=== PATIENT | female | born 1960 | race Caucasian/White ===

== ENCOUNTER 2017-03-25 09:50 | Emergency (ER) | payer BC ==
[2017-03-25] MEDS ORDERED: Lidocaine 2% PF * 5 ML VIAL INJ ONE (10:24)
[2017-03-25 10:40] VITALS: BP 116/79
[2017-03-25] MEDS ORDERED: Tetan/Diph/Pertus SYR(Tdap)* 0.5 ML SYR(BOOSTRIX) use SYR IM ONE (10:43)
--- NOTE | 2017-03-25 10:46 | UC ---
Laceration HPI - HPI Summary HPI Summary: 56 YEAR OLD PRESENTS WITH LEFT WRIST LACERATION - History Of Current Complaint Chief Complaint: UCLaceration Stated Complaint: WRIST LAC Time Seen by Provider: 03/25/17 10:19 Laceration Location: Wrist - LEFT Mechanism Of Injury: Sharp Trauma Onset/Duration: Sudden Onset Severity: Mild Pain Scale Used: 0-10 Numeric - 5 Aggravating Factors: Movement - Allergies/Home Medications Allergies/Adverse Reactions: Allergies Allergy/AdvReac Type Severity Reaction Status Date / Time Prochlorperazine Allergy Severe See Comment Verified 03/25/17 10:11 [From Compazine] PMH/Surg Hx/FS Hx/Imm Hx Previously Healthy: Yes - Surgical History Surgical History: Yes Surgery Procedure, Year, and Place: double bypass. . TONSILECTOMY. CARDIAC CATH - NO STENTS - Family History Known Family History: Positive: Other - UNKNOWN - Social History Alcohol Use: Rare Substance Use Type: None, Prescribed Smoking Status (MU): Never Smoked Tobacco Review of Systems Constitutional: Negative Skin: Other - LEFT WRIST LACERATION Eyes: Negative ENT: Negative Respiratory: Negative Cardiovascular: Negative Gastrointestinal: Negative Genitourinary: Negative Motor: Negative Neurovascular: Negative Musculoskeletal: Negative Neurological: Negative Psychological: Negative All Other Systems Reviewed And Are Negative: Yes Physical Exam Triage Information Reviewed: Yes Appearance: Well-Appearing Vital Signs: Initial Vital Signs Temp 37.2 C 03/25/17 10:07 Pulse 75 03/25/17 10:07 Resp 20 03/25/17 10:07 BP 116/79 03/25/17 10:07 Pulse Ox 99 03/25/17 10:07 Vital Signs Reviewed: Yes Eye Exam: Normal Eyes: Positive: Conjunctiva Clear ENT Exam: Normal Dental Exam: Normal Neck exam: Normal Neck: Positive: 1 Respiratory Exam: Normal Cardiovascular Exam: Normal Abdominal Exam: Normal Musculoskeletal Exam: Normal Neurological Exam: Normal Psychological Exam: Normal Skin: Positive: Other - LEFT WRIST LACERATION Laceration Repair - Laceration Repair 1 Description: Linear Laceration Size After Repair: Length (cm) - 2 Modified For Repair: No Anesthesia Used: 2.0% Lido Irrigation With Pressure Irrigation Device: Yes Closure Material: Sutures Closure Method: Single Layer Suture Of: Skin Suture Type: Nylon - # 2 , 5.0 , NYLON Laceration Course/Dx - Differential Dx - Laceration/Wound Differental Diagnoses: Laceration Provider Diagnoses: LACERATION Discharge - Discharge Plan Condition: Stable Disposition: HOME Prescriptions: Sulfamethox/Trimethoprim DS* [Bactrim DS 800/160 TAB*] 1 tab PO BID #14 tab Patient Education Materials: Laceration (ED) Referrals: Velma Jones MD [Primary Care Provider] -
== END 2017-03-25 11:06 | disposition home or self-care (01) ==
LOC: UCEAST 09:50
DX: S61.512A Laceration without foreign body of left wrist, initial encounter (principal); X58.XXXA Exposure to other specified factors, initial encounter
CPT/HCPCS: 12001; 90471; 90715; 99212; G0463

== ENCOUNTER 2017-04-12 11:08 | Emergency (ER) | payer BC ==
[2017-04-12 11:14] VITALS: BP 116/64
--- NOTE | 2017-04-12 11:25 | UC ---
HPI Wound/Suture Re-check - HPI Summary HPI Summary: Pt presents for suture removal - 2 simple interrupted sutures to left wrist. No erythema, discharge no tenderness No fevers, chills - History Of Current Complaint Chief Complaint: UCLaceration Stated Complaint: STITCH REMOVAL - WRIST Time Seen by Provider: 04/12/17 11:19 Hx Obtained From: Patient, Medical Records Onset/Duration: Lasting Days Severity: Mild Pain Intensity: 1 - Allergies/Home Medications Allergies/Adverse Reactions: Allergies Allergy/AdvReac Type Severity Reaction Status Date / Time Prochlorperazine Allergy Severe See Comment Verified 03/25/17 10:11 [From Compazine] PMH/Surg Hx/FS Hx/Imm Hx Cardiovascular History: Cardiac Disease, Hypertension - Surgical History Surgical History: Yes Surgery Procedure, Year, and Place: double bypass. . TONSILECTOMY. CARDIAC CATH - NO STENTS - Family History Known Family History: Positive: Other - UNKNOWN - Social History Lives: With Family Alcohol Use: Occasionally Substance Use Type: None Smoking Status (MU): Never Smoked Tobacco Review of Systems Constitutional: Negative Skin: Other - sutures left volar wrist Eyes: Negative ENT: Negative Respiratory: Negative Cardiovascular: Negative Gastrointestinal: Negative Genitourinary: Negative Motor: Negative Neurovascular: Negative Musculoskeletal: Negative Neurological: Negative Psychological: Negative All Other Systems Reviewed And Are Negative: Yes Physical Exam Triage Information Reviewed: Yes Appearance: Well-Appearing, No Pain Distress Vital Signs: Initial Vital Signs Temp 97.6 F 04/12/17 11:09 Pulse 81 04/12/17 11:09 Resp 18 04/12/17 11:09 BP 116/64 04/12/17 11:09 Pulse Ox 99 04/12/17 11:09 Vital Signs Reviewed: Yes Eye Exam: Normal Eyes: Negative: Discharge ENT: Positive: Hearing grossly normal Neck exam: Normal Neck: Positive: Supple, Nontender Respiratory: Positive: Normal breath sounds, No respiratory distress, No accessory muscle use Cardiovascular: Positive: Other: - 2+ radial CBT < 2 sec Musculoskeletal Exam: Normal Neurological Exam: Normal Psychological Exam: Normal Skin: Positive: Other - 2 sutures wound c/d/i no drainage, fluctuance, erythema Course/Dx - Course Course Of Treatment: sutures removed wound well approximated. wound c/d/i. reviewed with pt wound care. s/s infection. pt comfortable and in agreement with plan - Differential Dx - Laceration/Wound Provider Diagnoses: suture removal Discharge - Discharge Plan Condition: Stable Disposition: HOME Patient Education Materials: Stitches Removal (ED) Referrals: Velma Jones MD [Primary Care Provider] - Additional Instructions: Keep clean and dry It can atke up to 9 months for scar to completely heal - keep out of the sun contact your doctor or return with questions or concerns
== END 2017-04-12 11:30 | disposition home or self-care (01) ==
LOC: UCEAST 11:08
DX: Z48.02 Encounter for removal of sutures (principal)
CPT/HCPCS: 99211; G0463

== ENCOUNTER 2019-09-17 04:53 | Observation (INO) | payer BC, OTHER ==
[2019-09-17] MEDS ORDERED: Morphine 10 MG/ML VIAL (1 ml) ONE (04:58)
[2019-09-17] MEDS ORDERED: NS 0.9% 1000 ML** 1,000 ML IV ONE (04:59)
[2019-09-17] MEDS ORDERED: Morphine 10 MG/ML VIAL (1 ml) IV ONE (04:59)
--- NOTE | 2019-09-17 05:00 | ED ---
Lower Extremity - HPI Summary HPI Summary: Patient is a 58 y/o F presenting to [facility] via EMS with complaints of left ankle pain secondary to fall. She was outside when she slipped on the ice and fell. EMS noted obvious deformity and administered 10 mg morphine with minimal relief in pain. She notes that she has Hx of open heart surgery. Home medications and allergies are reviewed. - History of Current Complaint Stated Complaint: BROKEN ANKLE PER EMS Hx Obtained From: Patient, EMS Mechanism Of Injury: Fall From A Standing Position Onset of Pain: Prior to Arrival Onset/Duration: Still Present Severity Currently: Severe Pain Scale Used: 0-10 Numeric Timing: Constant Location: Is Discrete @ - left ankle - Allergies/Home Medications Allergies/Adverse Reactions: Allergies Allergy/AdvReac Type Severity Reaction Status Date / Time prochlorperazine Allergy Anaphylatic Verified 09/17/19 05:11 [From Compazine] Shock Home Medications: Home Medications Coenzyme Q10 (NF) [Th Co Q-10] 1 cap PO EVERY OTHER DAY 09/17/19 [History Confirmed 09/17/19] Multivitamin [Super Multivitamin] 1 each PO DAILY 09/17/19 [History Confirmed ] PMH/Surg Hx/FS Hx/Imm Hx Endocrine/Hematology History: Denies: Hx Diabetes Cardiovascular History: Denies: Hx Congestive Heart Failure, Hx Hypertension, Hx Pacemaker/ICD History: Denies: Hx Renal Disease Musculoskeletal History: Denies: Hx Rheumatoid Arthritis, Hx Osteoporosis Sensory History: Denies: Hx Hearing Aid Psychiatric History: Denies: Hx Panic Disorder - Cancer History Hx Chemotherapy: No Hx Radiation Therapy: No - Surgical History Surgery Procedure, Year, and Place: double bypass. . TONSILECTOMY. CARDIAC CATH - NO STENTS Infectious Disease History: Denies: Hx Clostridium Difficile, Hx Hepatitis, Hx Human Immunodeficiency Virus (HIV), Hx of Known/Suspected MRSA, Hx Shingles, Hx Tuberculosis, Hx Known/ Suspected VRE, Hx Known/Suspected VRSA, History Other Infectious Disease - Family History Known Family History: Positive: Other - FMHx of breast cancer - Social History Alcohol Use: Occasionally Substance Use Type: Reports: None Smoking Status (MU): Never Smoked Tobacco Review of Systems Negative: Fever Musculoskeletal: Other - positive - fall, left ankle pain All Other Systems Reviewed And Are Negative: Yes Physical Exam - Summary Physical Exam Summary: Appearance: Well-appearing, Well-nourished, noted to be in obvious pain and is hyperventilating Skin: Warm, dry, no obvious rash Eyes: sclera anicteric, no conjunctival pallor ENT: mucous membranes moist Neck: deferred Respiratory: No signs of respiratory distress Cardiovascular: Appears well perfused, pulses are nml Abdomen: deferred Musculoskeletal: There is an obvious fracture and dislocation at the area of her left ankle. The foot appears well perfused and has a good pulse. Sensation is intact to light touch. There is no tenting about the LLE. There are no open areas of skin. Neurological: Awake and alert, mentation is normal, speech is fluent and appropriate Psychiatric: affect is normal, does not appear anxious or depressed Triage Information Reviewed: Yes Vital Signs Reviewed: Yes Procedures - Sedation Patient Received Moderate/Deep Sedation with Procedure: Yes Are You The Provider Who Administered The Sedation: Yes Name of Provider Whom Sedated Patient: Jamee Marmolejo - Procedural Sedation/Analgesia Sedation Course: RT Present, Emergency Airway Equipment Available, Informed Consent Obtained, Time Out Completed, End-tidal Capnography Utilized Adverse Reactions Experienced by Patient: None Mallampati Classification: Class II ASA Classification: Class II: Mild Systemic Disease Pre-Procedural Heart: S1 and S2 Pre-Procedural Lungs: Clear Auscultation Comment/Plan of Care: Pt requires moderate sedation to reduce comminuted displaced ankle fracture. Provider Procedure Attestation: With My Signature Below, I Attest to have Personally Reviewed and Agree with the Pre-Sedation History and Pre-Service Assessment Update Cleared for Moderate Sedation: Yes Pre-Procedural Diagnosis: Trimalleolar fracture/dislocation of the left ankle Post-Procedural Diagnosis: Trimalleolar fracture/dislocation of the left ankle Procedure: Reduction of fracture/dislocation Estimated Blood Loss: None Specimen(s): None Findings: None Implants/Tubes/Drains Placed: None - Splinting Left Lower Extremity Location: left ankle/leg Hand-Made Type: orthoglass Splint: posterior walking Pre-Proc Neuro Vasc Exam: normal Post-Proc Neuro Vasc Exam: normal Splint Applied by Provider: Jamee Marmolejo - Joint Reduction Left Ankle Joint Reduction Site: ankle (L) Conscious Sedation: Yes Reduction Attempts: 1 Pre-Procedure NV Exam: Yes Post Joint Reduction Film: joint reduced Diagnostics - Laboratory Result Diagrams: 09/17/19 07:40 09/17/19 07:40 Lab Statement: Any lab studies that have been ordered have been reviewed, and results considered in the medical decision making process. - Radiology LEFT ANKLE X-RAY Radiology Interpretation Completed By: ED Physician Summary of Radiographic Findings: Left X-ray showed posterior, dislocated trimalleolar fracture of the left ankle, pending official report. POST REDUCTION LEFT ANKLE X-RAY Radiology Interpretation Completed By: ED Physician Summary of Radiographic Findings: Post-reduction left ankle x-ray showed good anatomical alignment, pending official report. Lower Extremity Course/Dx - Course Course Of Treatment: Patient is a 58 y/o F presenting to [facility] via EMS with complaints of left ankle pain secondary to fall. She was outside when she slipped on the ice and fell. EMS noted obvious deformity and administered 10 mg morphine with minimal relief in pain. On physical exam, patient is noted to be in obvious pain and is hyperventilating. There is an obvious fracture and dislocation at the area of her left ankle. The foot appears well perfused and has a good pulse. Sensation is intact to light touch. There is no tenting about the LLE. There are no open areas of skin. Left X-ray showed posterior, dislocated trimalleolar fracture of the left ankle. During ED course, patient received fluids, morphine 10 mg IV, and Percocet 5/325, 2 tabs. Moderate sedation with 200 mg IV Propofol was done, reduction of left ankle performed with SLAVA Ramirez. One attempt of reduction done. Post-reduction left ankle x -ray showed good anatomical alignment. No complications during reduction. Orthoglass posterior walking splint was applied to LLE. Patient was discharged to home and will follow up with ortho. She was given crutches and prescription for Percocet. - Diagnoses Provider Diagnoses: Trimalleolar fracture of left ankle Discharge ED - Sign-Out/Discharge Documenting (check all that apply): Sign-Out Patient Signing out patient TO: mEma Salcido - Discharge Plan Condition: Stable Disposition: ADMITTED TO [facility] - Billing Disposition and Condition Condition: STABLE Disposition: Admitted to [facility] - Attestation Statements Document Initiated by Scribe: Yes Documenting Scribe: ALMA BRAN Provider For Whom Scribe is Documenting (Include Credential): JAMEE MARMOLEJO MD Scribe Attestation: ALMA Shanks, scribed for JAMEE MARMOLEJO MD on 09/18/19 at 0439. Scribe Documentation Reviewed: Yes Provider Attestation: The documentation as recorded by the scribe, ALMA BRAN accurately reflects the service I personally performed and the decisions made by me, JAMEE MARMOLEJO MD Status of Scribe Document: Viewed
[2019-09-17] MEDS ORDERED: Propofol* 10 MG/ML 20 ML BTL IV PUSH ONE (05:18)
[2019-09-17] MEDS ORDERED: oxyCODONE/Acetamin 5/325 MG* TAB PO ONE (05:53)
[2019-09-17] MEDS ORDERED: Ketorolac INJ* 30 MG/ML 1 ML VIAL IV ONE (07:07)
--- NOTE | 2019-09-17 07:26 | ED ---
Progress - Progress Note Progress Note: Patient seen by Dr. Marmolejo on shift 09/16/19 19:00. Patient to be discharged. Patient having significant pain at discharge. She is unable to ambulate or bear weight. Course/Dx - Diagnoses Provider Diagnoses: Trimalleolar fracture of left ankle - Provider Notifications Discussed Care Of Patient With: Cyril Butcher Time Discussed With Above Provider: 07:26 Instructed by Provider To: Other - Dr. Butcher orthopedics is aware and will consult. 0731 Dr. Denise hospitalist agrees to admit. Discharge ED - Sign-Out/Discharge Documenting (check all that apply): Patient Departure - Discharge Plan Condition: Stable Disposition: ADMITTED TO [facility] Prescriptions: oxyCODONE/Acetamin 5/325 MG* [Percocet 5/325 TAB*] 2 tab PO Q4H PRN #20 tab MDD 8 PRN Reason: Pain - Severe Patient Education Materials: Ankle Fracture (ED), Moderate Sedation (ED) Referrals: Shweta Carter MD [Medical Doctor] - Additional Instructions: This type of break will need surgery to heal properly. Call the orthopedic surgery office later this morning and tell them you were in the ER after suffering a trimalleolar fracture. They will have your films available via the computers and will arrange an appointment for you to be seen probably later today or Tuesday, and the surgery will likely be scheduled soon after . In the meantime keep the splint on and do not bear weight, use the crutches to get around. Keep the leg elevated as much as possible and ice it frequently. This is most easily done by placing a bag of frozen vegetables on the ankle. - Billing Disposition and Condition Condition: STABLE Disposition: Admitted to [facility] - Attestation Statements Document Initiated by Mazinibe: Yes Documenting Scribe: Shirley Payne Provider For Whom Nubia is Documenting (Include Credential): Emma Salcido MD Scribe Attestation: I, Shirley Payne, scribed for Emma Salcido MD on 09/17/19 at 0736. Scribe Documentation Reviewed: Yes Provider Attestation: The documentation as recorded by the Shirley cantrell accurately reflects the service I personally performed and the decisions made by me, Emma Salcido MD Status of Scribe Document: Viewed
[2019-09-17 07:47] LABS: ABS Eosinophils 0.1 10^3/ul (0-0.6); ABS Lymphocytes 1.2 10^3/ul (1.0-4.8); ABS Monocytes 0.3 10^3/ul (0-0.8); ABS Neutrophils 5.5 10^3/ul (1.5-7.7); Eosinophil % 0.8 %; Hematocrit 40 % (35-47); Lymphocyte % 17.5 %; Mean Corpuscular HGB Conc 35 g/dL (31-36); Mean Corpuscular Hemoglobin 31 pg (27-31); Mean Corpuscular Volume 88 fL (80-97); Mean Platelet Volume 7.4 fL (7.4-10.4); Platelet Count 226 10^3/uL (150-450); Red Cell Distribution Width 13 % (10-15)
[2019-09-17 08:02] LABS: Albumin 4.2 g/dL (3.2-5.2); Albumin/Globulin Ratio 1.7 (1-3); BUN/Creatinine Ratio 18.9 (8-20); Calcium 9.8 mg/dL (8.6-10.3); EGFR African American 77.3 (>60); EGFR Non-African American 63.9 (>60); Globulin 2.5 g/dL (2-4); Total Bilirubin 0.4 mg/dL (0.2-1.0); Total Protein 6.7 g/dL (6.4-8.9)
[2019-09-17] MEDS ORDERED: HYDROmorphone INJ* 0.5 MG/0.5 ML SYRINGE IV ONE (08:10)
[2019-09-17] MEDS ORDERED: HYDROmorphone INJ* 0.5 MG/0.5 ML SYRINGE IV SLOW PU ONE (08:10)
[2019-09-17] MEDS ORDERED: Acetaminophen TAB* 325 MG PO PRN (08:15)
[2019-09-17 08:20] LABS: Potassium 5.1 mmol/L (3.5-5.0)
[2019-09-17] MEDS ORDERED: Atorvastatin* 80 MG TAB PO SCH ×2 (09:00→21:00)
[2019-09-17] MEDS ORDERED: Lisinopril TAB* 5 MG PO SCH (09:00)
--- NOTE | 2019-09-17 10:42 | HP ---
CC: Dr. Jones; Dr. Madden; Dr. Butcher* HISTORY AND PHYSICAL: DATE OF ADMISSION: 09/17/19 PRIMARY CARE PROVIDER: Dr. Jones. CHIEF COMPLAINT: Status post fall and left ankle pain. HISTORY OF PRESENT ILLNESS: Ms. Maynard is a 58-year-old female with a history of coronary artery disease who slid on ice on her way to work fracturing her left ankle. The left ankle was reset and splinted in the emergency department. The patient was ready to go home, but she had severe intractable pain and the ED physician recommended for the patient to be admitted for that. The patient stated that she did not have a syncopal episode and she had been feeling her usual state of health before that. She simply slid on ice. She is going to be placed on overnight observation. PAST MEDICAL HISTORY: 1. History of coronary artery disease, status post coronary artery bypass grafting in 2014. 2. History of plantar fascitis. 3. Dyslipidemia. 4. History of rare migraines. 5. Gastroesophageal reflux disease. 6. Endometriosis. 7. Carpal tunnel release. 8. History of . 9. Tonsillectomy. MEDICATIONS: At home include: 1. Coenzyme Q10 one capsule daily. 2. Multivitamin 1 tablet daily. 3. Metoprolol tartrate 25 mg b.i.d. 4. Crestor 40 mg daily. 5. Ranitidine 150 mg b.i.d. p.r.n. 6. Aspirin 81 mg daily. 7. Amlodipine 5 mg daily. 8. Lisinopril 2.5 mg daily. 9. She was prescribed Percocet in the ED. 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 FAMILY HISTORY: Positive for sister with diagnosis of breast cancer at the age of 48. Father with lung cancer at the age of 62 and mother who of brain aneurysm at the age of 54. SOCIAL HISTORY: The patient denies tobacco, alcohol or drug use. She is working for [employer]. She lives with her , who is her surrogate. REVIEW OF SYSTEMS: Please see history of present illness. All the remaining 12 systems were reviewed with the patient and were, otherwise, negative. Please note that she exercises frequently and she has no exercise intolerance and denies any chest pain. In fact, she had a workup performed with Dr. Madden's office just recently and she felt that it all was negative. PHYSICAL EXAMINATION GENERAL: The patient is a very pleasant 58-year-old female who is in no acute distress. The patient is alert and oriented x3. VITAL SIGNS: Blood pressure of 136/69, heart rate of 76 and regular, respiratory rate 15, oxygen saturation 95% on room air, temperature of 99.8. HEENT: Head: Atraumatic, normocephalic. Eyes: Pupils are equal and reactive to light and accommodation. Oropharynx is clear. Mucosa moist. NECK: Supple. No JVD. No bruits bilaterally. RESPIRATORY: Clear to auscultation bilaterally. CARDIOVASCULAR: Regular rate and rhythm. No murmur. ABDOMEN: Soft, nontender. Bowel sounds are present in all 4 quadrants. EXTREMITIES: The left ankle is in a splint. It is difficult for me to evaluate the ankle edema on that side. On the right side, the patient has no edema. Pedal pulses on the right side are palpable. There is no clubbing and no cyanosis bilaterally. NEURO EVALUATION: Speech is clear. Cranial nerves II through XII are grossly intact. Motor strength is 5/5 bilaterally. DIAGNOSTIC STUDIES/LAB DATA: Laboratory Data: White blood cell count of 7.3, hemoglobin of 14.0, hematocrit of 40, and platelets of 226. Sodium was 139, potassium of 5.1, chloride 106, carbon dioxide 30, BUN 17, creatinine 0.9. Liver function tests unremarkable. Lower extremity CT obtained on 09/17/19, impression: "Comminuted trimalleolar fracture most consistent with Maravilla III." ASSESSMENT AND PLAN: 1. The patient is a 58-year-old female with a history of heart disease who slid on ice and suffered from trimalleolar ankle fracture on the left. The patient is going to be placed on observation for intractable pain. She already has her ankle splinted and Dr. Butcher also saw the patient in consultation. 2. The patient has mild hyperkalemia and due to that her lisinopril is going to be held and we will check her basic metabolic panel in the morning. 3. For history of cardiac disease, the patient is started on aspirin as well as beta sean is going to be continued. 4. For hypertension, her amlodipine is going to be continued. 5. For DVT prophylaxis, the patient is going to be placed on heparin subcutaneously. 6. The patient's code status is full and her surrogate is her . TIME SPENT: Approximately 55 minutes were spent on the admission of this patient, more than half that time was spent [id number] with the patient during the interview and physical exam. [id number]/[facility] #: [id number] MTDD
[2019-09-17] MEDS: Aspirin EC TAB* 81 MG TAB.EC PO SCH (10:46)
[2019-09-17] MEDS: Metoprolol Tartrate TAB* 25 MG PO SCH ×2 (10:46→21:47)
[2019-09-17] MEDS: Senna TAB 8.6 mg* TAB PO SCH ×2 (10:46→21:47)
[2019-09-17] MEDS: Docusate CAP* 100 MG PO SCH ×2 (10:47→21:47)
[2019-09-17] MEDS: amLODIPine TAB* 5 MG PO SCH (10:47)
[2019-09-17] MEDS: oxyCODONE/Acetamin 5/325 MG* TAB PO PRN ×3 (10:57→21:47)
[2019-09-17] MEDS: Heparin VIAL(*) 5000 UNITS/ML VIAL (FIVE THOUSAND) SUBCUT SCH ×2 (14:25→21:50)
[2019-09-17] MEDS: Ondansetron INJ* 2 MG/ML VIAL IV PRN (18:13)
[2019-09-17] MEDS: Morphine INJ* 2 MG/ML 1 ML SYRINGE (TWO MG - NEW SYRINGE VERSION) IV PRN (19:15)
--- NOTE | 2019-09-17 20:57 | CONS ---
CONSULTATION REPORT: DATE OF CONSULT: 09/17/19 ATTENDING ORTHOPEDIC PROVIDER: Dr. Cyril Butcher. PRIMARY CARE PROVIDER: Dr. Jones. LABEL REWINDER: Dr. Madden. CHIEF COMPLAINT: Left ankle trimalleolar fracture. HISTORY OF PRESENT ILLNESS: The patient is a 58-year-old female with past medical history of coronary artery disease, status post CABG in 2014, who suffered a mechanical fall on ice at work this morning with a resultant closed trimalleolar left ankle fracture. The patient works for [employer] and slipped in the parking lot. She denies any other injuries, loss of consciousness hitting her head at the time of the fall. Also denies associated symptoms of chest pain, shortness of breath, dizziness. Fracture was reduced and splinted in the emergency department today by emergency room provider. The patient was admitted for pain control. When seen at bedside today, she reports she has pain that is sharp, severe and nonradiating in the left ankle rated 6/10 at rest, with any movement it worsened to a 9/10. PAST MEDICAL HISTORY: Significant for coronary artery disease, status post CABG in 2014; plantar fascitis; dyslipidemia; migraines; GERD; endometriosis. PAST SURGICAL HISTORY: Significant for carpal tunnel release, , tonsillectomy, CABG. HOME MEDICATIONS: Include: 1. Coenzyme Q10 daily. 2. Multivitamin 1 tab daily. 3. Metoprolol tartrate 25 mg b.i.d. 4. Crestor 40 mg daily. 5. Ranitidine 150 mg b.i.d. p.r.n. 6. Aspirin 81 mg daily. 7. Amlodipine 5 mg daily. 8. Lisinopril 2.5 mg daily. ALLERGIES: COMPAZINE resulting in locked jaw. FAMILY HISTORY: No history of adverse reactions from anesthesia. SOCIAL HISTORY: The patient works for [employer] She lives in a one-therese home with 4 steps with her , who is her surrogate decision maker. Her 's name is Alek, phone number [phone]. The patient denies the use of cigarettes or drugs. She uses occasional alcohol. She is quite active at baseline working for [employer] She also goes to Spin class 3 times per week and lifts weights 2 times per week. REVIEW OF SYSTEMS: General: No fever, chills, or recent illness. HEENT: Negative for head trauma, headache, or change in vision. Cardiac: Negative for any chest pain. Does have history of CABG. She had a recent DOT physical with echo, EKG, and stress test. Respiratory: No shortness of breath. GI: No history of sleep apnea. GI: No abdominal pain, nausea, vomiting, or diarrhea. : No dysuria. Musculoskeletal: Positive for left ankle pain. No pain of left lower extremity. Otherwise, no pain in right lower extremity with bilateral upper extremities. Neuro: Denies any numbness, tingling of bilateral lower and upper extremities. PHYSICAL EXAM: Vital Signs: Temperature 98.5, pulse rate 77, respiratory rate 18, oxygen saturation is 93 on room air, blood pressure 111/51. General: Well appearing, in no acute distress. HEENT: Normocephalic, atraumatic. Extraocular movements intact. Respiratory: Normal rate and effort of breathing. Cardiovascular: Radial pulses are 2+ and regular bilaterally. Abdomen: Nondistended, nontender. Extremities: Bilateral upper extremities and right lower extremities skin envelope intact. Nontender to palpation. Able to flex and extend all joints without pain. Left lower extremity: There is a lower leg splint in place. The patient is nontender to palpation of the exposed toes, knee, femur, or hip. She is able to flex and extend MTPs, knee, and hip without pain while lower leg is supported. Capillary refill less than 2 seconds distally. Sensation intact to light touch distally. DIAGNOSTIC STUDIES: CT of the left ankle demonstrates comminuted trimalleolar fracture. ASSESSMENT: Comminuted trimalleolar fracture, left ankle. PLAN: ORIF will be required, patient is aware and in agreement. She will be nonweightbearing. She will keep the splint clean, dry, and intact. She should stay elevated on 4-plus pillows with ice to reduce swelling. She should be on chemical and mechanical DVT prophylaxis until the midnight before her surgery. It has yet to be determined when she will have surgery, potentially tomorrow if medically optimized and swelling is well controlled. The patient has seen Dr. Mcnally in the office before and requests that he perform her surgery though depending on her level of pain, she may desire to have it done tomorrow by our [employer] professional orthopedic surgeon. If surgery is not done tomorrow, she may be discharged and ORIF can be done as an outpatient, but should be done within 7- 10 days. In the meanwhile, she should stay nonweightbearing and continue strict elevation, chemical DVT prophylaxis should be appropriately held prior to surgery. She will need medical optimization prior to surgery. Case discussed with Dr Butcher who agrees with assessment and plan. SLAVA NAVARRETE [id number]/[facility] #: [id number] ELENA
[2019-09-18] MEDS: oxyCODONE/Acetamin 5/325 MG* TAB PO PRN (02:45)
[2019-09-18] MEDS: Morphine INJ* 2 MG/ML 1 ML SYRINGE (TWO MG - NEW SYRINGE VERSION) IV PRN (04:32)
[2019-09-18] MEDS: Ondansetron INJ* 2 MG/ML VIAL IV PRN ×2 (04:32→10:19)
[2019-09-18] MEDS ORDERED: Morphine INJ* 2 MG/ML 1 ML SYRINGE (TWO MG - NEW SYRINGE VERSION) IV ONE (05:19)
[2019-09-18] MEDS ORDERED: Morphine INJ* 4 MG/ML 1 ML SYRINGE (NEW SYRINGE VERSION) IV ONE (05:19)
[2019-09-18] MEDS ORDERED: oxyCODONE/Acetamin 5/325 MG* TAB PO PRN ×3 (05:20→09:08)
[2019-09-18] MEDS ORDERED: Morphine INJ* 4 MG/ML 1 ML SYRINGE (NEW SYRINGE VERSION) ONE (05:21)
[2019-09-18] MEDS: Heparin VIAL(*) 5000 UNITS/ML VIAL (FIVE THOUSAND) SUBCUT SCH ×2 (05:39→13:10)
[2019-09-18 05:44] LABS: BUN/Creatinine Ratio 19.1 (8-20); Calcium 9.2 mg/dL (8.6-10.3); EGFR African American 78.3 (>60); EGFR Non-African American 64.7 (>60); Potassium 4.2 mmol/L (3.5-5.0)
[2019-09-18] MEDS: Aspirin EC TAB* 81 MG TAB.EC PO SCH (09:19)
[2019-09-18] MEDS: Senna TAB 8.6 mg* TAB PO SCH (09:19)
[2019-09-18] MEDS: Metoprolol Tartrate TAB* 25 MG PO SCH (09:19)
[2019-09-18] MEDS: amLODIPine TAB* 5 MG PO SCH (09:20)
[2019-09-18] MEDS: Docusate CAP* 100 MG PO SCH (09:20)
[2019-09-18] MEDS ORDERED: traMADol TAB* 50 MG PO PRN (10:42)
[2019-09-18 11:42] VITALS: BP 135/59
[2019-09-18] MEDS ORDERED: traMADol TAB* 50 MG PO ONE (13:02)
--- NOTE | 2019-09-18 21:09 | DS ---
CC: Dr. Jones; Dr. Eleazar Mcnally* DISCHARGE SUMMARY: DATE OF ADMISSION: 09/17/19 DATE OF DISCHARGE: 09/18/19 PRIMARY CARE PROVIDER: Dr. Jones. DISPOSITION ON DISCHARGE: Home. CONDITION ON DISCHARGE: Improved. MEDICATIONS ON DISCHARGE: 1. Coenzyme Q10 1 tab every other day. 2. Multivitamin 1 tab daily. 3. Metoprolol 25 mg twice daily. 4. Rosuvastatin 40 mg daily. 5. Ranitidine 150 mg twice daily as needed. 6. Aspirin 81 mg daily. 7. Amlodipine 5 mg daily. 8. Tramadol 50 mg every 4 hours as needed for moderate to severe pain. 9. MiraLAX 17 g daily. Hold for diarrhea. 10. Zofran ODT 4 mg every 6 hours as needed for nausea. 11. Enoxaparin 40 mg subcutaneously daily. Hold the day prior to surgery. 12. Docusate 100 mg twice daily. Hold for diarrhea. 13. Acetaminophen 975 mg every 6 hours for mild to moderate pain. PRIMARY DIAGNOSIS: Left trimalleolar ankle fracture. HISTORY OF PRESENT ILLNESS AND HOSPITAL COURSE: This is a 58-year-old female, slipped on ice resulting in left trimalleolar ankle fracture, admitted to the hospital with uncontrolled pain from the emergency room, seen in conjunction with Orthopedic Surgery. She is scheduled to have surgery at least in 7 days, next Tuesday, with Dr. Eleazar Mcnally. There was a recommendation for anticoagulation prior to the surgery made by Stormy Holliday whom I discussed with this recommendation on the phone today. She did indicate this does not require therapy status post ankle fracture prior to surgery. Discussed with the patient she indicated if Lovenox were available, she would accept it and administer at home either herself or in conjunction with her sister. The prescription was given for the patient, although review of does not indicate high incidence of DVTs in ankle fractures, particularly prior to the surgery. I discussed the risks associated with anticoagulation. The patient during the course of her hospital stay had difficulty with opiates which caused nausea; however, she did have success in pain control with tramadol, which I gave her prescription for until surgery. Additionally, I recommended using Tylenol up to 975 mg every 6 hours for the treatment of her pain. We discussed elevating the leg and applying ice for additional relief. There were no complications during the course of her hospital stay. REASONS TO RETURN TO THE HOSPITAL: Including but not limited to recurrent or worsening symptoms including out of control pain, chest pain, shortness of breath, nausea, vomiting, lightheadedness, loss of consciousness, inability to obtain or tolerate medications were discussed with the patient. She acknowledged understanding. TIME SPENT: Greater than 60 minutes was spent on this discharge of this patient , greater than half was spent [id number] with the patient. [id number]/[facility] #: [id number] ELENA
== END 2019-09-18 15:13 | disposition home or self-care (01) ==
LOC: ED 04:53 → SSU 08:15
PROVIDERS: ADMIT Internal Medicine; ATTEND Internal Medicine
DX: S82.852A Displaced trimalleolar fracture of left lower leg, initial encounter for closed fracture (principal); W00.0XXA Fall on same level due to ice and snow, initial encounter; Y92.9 Unspecified place or not applicable; F17.210 Nicotine dependence, cigarettes, uncomplicated; Z79.82 Long term (current) use of aspirin; Z79.899 Other long term (current) drug therapy; I25.10 Atherosclerotic heart disease of native coronary artery without angina pectoris; Z95.5 Presence of coronary angioplasty implant and graft; E78.5 Hyperlipidemia, unspecified; K21.9 Gastro-esophageal reflux disease without esophagitis; N80.9 Endometriosis, unspecified
CPT/HCPCS: 27810; 36415; 80048; 80053; 85025; 96372; 96374; 96375; 99285; A9270-GY; G0378; J1170; J1644; J1885; J2270; J2405; J2704

== ENCOUNTER → 2019-09-25 | Day surgery (SDC) | payer OTHER ==
[~2019-09-25] MED LIST: Buffered Lidocaine 1% SYRIN* 1 ML/SYRINGE INTRADERM ONE; Bupivacaine 0.5% SDV PF* 30ML VIAL ONE; Dexamethasone IV* 4 MG/ML 1 ML (4 MG) ONE; HYDROmorphone INJ1* 1 MG/ML SYRINGE IV PRN; Lactated Ringers 1000 ML Bag* 1,000 ML IV SCH; Midazolam* 1 MG/ML 2 ML VIAL (2 MG) ONE; Midazolam* 1 MG/ML 5 ML VIAL (5 MG) ONE; Naloxone* 0.4 MG/ML 1 ML VIAL IV PRN; Ondansetron INJ* 2 MG/ML VIAL IV PRN; Ondansetron INJ* 2 MG/ML VIAL ONE; Propofol* 10 MG/ML 20 ML BTL ONE; ceFAZolin 2 GM in NS PREMIX(*) 2 GM/100 ML BAG IVPB ONE; fentaNYL* 50 MCG/ML 2 ML VIAL (100 MCG VIAL) IV PRN; fentaNYL* 50 MCG/ML 2 ML VIAL (100 MCG VIAL) ONE; oxyCODONE/Acetamin 5/325 MG* TAB PO PRN
--- NOTE | 2019-09-25 14:20 | OP ---
Operative Report - Blank - Operative Report Date of Operation: 09/25/19 Note: PATIENT: Huber Maynard DATE OF : 1960 DATE OF SURGERY: 09/25/2019 SURGEON: Eleazar Mcnally MD PAYING TELLER: SLAVA Downing , whos assistance was necessary for positioning, retraction, help with instrumentation, and closure. ANESTHESIOLOGIST: Dr. Mcgee PREOPERATIVE DIAGNOSIS: Left comminuted trimalleolar ankle fracture and intraarticular ankle loose bodies POSTOPERATIVE DIAGNOSIS: Left comminuted trimalleolar ankle fracture and intraarticular ankle loose bodies OPERATION: 1. Left trimalleolar ankle fracture open reduction and internal fixation 2. Left ankle arthrotomy and excision of loose bodies ANESTHESIA: General + block IMPLANTS: Arthrex ankle fracture set plate and screws TOURNIQUET TIME: 2 hours with a well-padded thigh tourniquet at 250mmHg SPECIMENS: none ESTIMATED BLOOD LOSS: minimal COMPLICATIONS: none STATUS: Stable from the operating room to the recovery room and then home. INDICATIONS FOR PROCEDURE: Huber sustained the above injury and a closed reduction and splinting was performed in the ER. Both operative and non operative treatment alternatives were reviewed. Further, the nature and risks of surgery were reviewed in careful detail, in the office as well as the pre-operative holding area. Our discussions regarding the risks of surgery included, but were not limited to, infection, wound problems, nerve injury, neuroma, RSD, persistent symptoms, blood clot, nonunion, malunion, post-traumatic arthritis, hardware failure, failure of the surgery, and even the remote chance of catastrophic complication. DESCRIPTION OF PROCEDURE: The patient was seen in the preoperative holding unit and informed written consent was obtained. The appropriate extremity was marked. The patient was then brought to the operating room and carefully positioned on the operating room table. Anesthesia was induced. All bony prominences were padded with great care. A well-padded thigh tourniquet was placed. A chlorhexidine based pre- scrub was performed followed by a chloraprep prep and drape in standard sterile fashion. A surgical safety pause was then conducted in which we confirmed the appropriate patient, extremity, planned procedure, availability of equipment, indication and administration of prophylactic antibiotics, and DVT prophylaxis in the form of a compression boot on the non-surgical extremity. I began with Esmarch exsanguination of the limb and inflated the tourniquet. I then utilized a laterally based incision overlying the posterior aspect of the distal fibula. Great care was taken to protect the superficial peroneal nerve, which was not visualized within the field of view. I dissected down through the soft tissue layers to expose the distal fibula and SPR. I then exposed the distal fibula fractures. Fracture hematoma was removed. There was comminution and shortening of the fibula. I gained a reduction utilizing pointed reduction clamps. I placed an anatomic distal fibula Arthrex plate laterally and then confirmed the reduction and the position of the plate fluoroscopically. I placed screws to hold the plate to the bone. The provisional fixation was removed and then I again confirmed fluoroscopically the appropriate position of the plate and screw lengths. I then found the plane between the peroneals and flexor hallucis longus and dissected into this plane. I exposed the posterior malleolus. I freed up the fracture site and removed fracture hematoma. Again, there was comminution. I then gained reduction of the posterior malleolus fracture with a large pointed reduction clamp. This was then held provisionally with K wires. I then placed a one third semitubular plate in a buttressing fashion to hold the main fracture plane reduced. Fluoroscopy was used to confirm reduction and placement of the hardware. I then made an over the medial malleolus. I dissected anteriorly and performed an arthrotomy to expose the anteromedial ankle joint. There were some loose bodies in the joint which were excised. I then thoroughly irrigated the joint. There was extensive comminution of the medial malleolus fractures, especially at the anterior margin of the plafond, and at the posterior margin of the plafond. Medially, there was one good piece of bone left, which I reduced with a pointed reduction clamp. I then placed a guidewire and overdrilled for a 4.0 mm cannulated screw. This was placed with a washer. There was not enough remaining bone to place a second screw. I then performed a stress fluoroscopic examination and no instability was appreciated. Final fluoroscopic images were then obtained. At this point, we irrigated copiously and then closed in layers meticulously utilizing 3-0 Monocryl for the deep and subdermal layers and tra for the skin. A sterile dressing was then applied followed by a splint with the ankle in a neutral position. The patient was then awakened from anesthesia and transferred to the recovery room in stable condition. There were no complications. All needle and sponge counts were correct at the end of the case. This case was substantially more difficult than a typical trimalleolar ankle fracture ORIF. Given the complexity of the fractures and the extensive comminution, it required substantially increased work, intensity, time, and technical skill. ATTESTATION: I attest I was present and scrubbed and performed the critical portions of the procedure myself. POSTOPERATIVE PLAN: The postop plan is for [id number] for an anticipated duration of 6 weeks. Follow-up will be in 2 weeks. At that time we will likely transition into a [id number] short leg cast. We will use aspirin for DVT prophylaxis.
[2019-09-25 15:47] VITALS: BP 131/69
== END | disposition home or self-care (01) ==
LOC: OR 08:24
PROVIDERS: ATTEND Orthopaedic Surgery
DX: S82.852A Displaced trimalleolar fracture of left lower leg, initial encounter for closed fracture (principal); I25.10 Atherosclerotic heart disease of native coronary artery without angina pectoris; Z95.1 Presence of aortocoronary bypass graft; W00.0XXA Fall on same level due to ice and snow, initial encounter; Y92.9 Unspecified place or not applicable; K21.9 Gastro-esophageal reflux disease without esophagitis; I10 Essential (primary) hypertension; E78.5 Hyperlipidemia, unspecified
CPT/HCPCS: 76000; C1713; C1776; J0690; J1100; J2250; J2405; J2704; J3010; J3490